=== PATIENT | male | born 2000 | race Hispanic/Latino ===

== ENCOUNTER 2023-11-04 03:05 | Emergency (ER) | payer OTHER, SELFPAY ==
[2023-11-04] MEDS ORDERED: Fluorescein Opthalmic Strip ONE (03:18)
[2023-11-04] MEDS ORDERED: Tetracaine 0.5% PF 4 ML BOT ONE (03:18)
== END 2023-11-04 03:34 | disposition home or self-care (01) ==
LOC: MADERS 03:05
DX: S05.92XA Unspecified injury of left eye and orbit, initial encounter (principal); W22.8XXA Striking against or struck by other objects, initial encounter
CPT/HCPCS: 99283